=== PATIENT | female | born 1980 | race Caucasian/White ===

== ENCOUNTER 2019-07-29 19:17 | Inpatient (IN) | payer OTHER ==
[~2019-07-29] VITALS: Ht 175.3 cm; Wt 97.2 kg
--- NOTE | 2019-07-29 19:38 | ED.ADGEN ---
Past History Past Medical History: Hypertension Adult General Chief Complaint Chief Complaint ".. I ve been having this chest pain or discomfort the last 3 days.. sharifa dull... ache... heavy chest.. seems at times I can't catch my breath... 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 Pt. denies prior cardiac issues but has history of hypertension 6 years and chronic tobacco use. 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 Patient describes heaviness in center chest pain associated with episodes of dyspnea dyspnea. Nothing seems to make the discomfort better. Describes pain as more of an ache in the center. No radiation. No history of DVTs. No history of early onset of cardiac disease or blood clots with family members. They do have hypertension. Recent move approximately 6 months ago from [place]. Has had no history im munosuppression. Has had previous surgery of tubal and C-sections 2.. Has been on increased social stressors with move and new job. Review of Systems Review of Systems Constitutional: Denies fever or chills [] Eyes: Denies change in visual acuity, redness, or eye pain [] HENT: Denies nasal congestion or sore throat [] Respiratory: Complaints of episodes of shortness of breath [] Cardiovascular: No additional information not addressed in HPI [] GI: Denies abdominal pain, nausea, vomiting, bloody stools or diarrhea [] : Denies dysuria or hematuria [] Musculoskeletal: Denies back pain or joint pain [] Integument: Denies rash or skin lesions [] Neurologic: Denies headache, focal weakness or sensory changes [] Endocrine: Denies polyuria or polydipsia [] All other systems were reviewed and found to be within normal limits, except as documented in this note. Family History Family History Noncontributory Current Medications Current Medications Current Medications Medications (Trade) Dose Ordered Sig/Tom Start Time Stop Time Status Last Admin Dose Admin Aspirin (Rosales Aspirin) 325 mg 1X ONCE 07/29/19 19:45 07/29/19 20:02 DC 07/29/19 19:56 325 MG Aspirin (Children'S Aspirin) 81 mg STK-MED ONCE 07/29/19 19:53 07/29/19 19:53 DC Lactated Ringer's 1,000 ml @ 1,000 mls/hr Q1H 07/29/19 19:42 07/29/19 20:41 DC 07/29/19 19:59 1,000 MLS/HR Allergies Allergies Allergies Coded Allergies Type Severity Reaction Last Updated Verified No Known Drug Allergies 07/29/19 No Physical Exam Physical Exam Constitutional: Moderate acute distress, non-toxic appearance. [] HENT: Normocephalic, atraumatic, bilateral external ears normal, oropharynx moist, no oral exudates, nose normal. []Residue old black charcoal from face mask Eyes: PERRLA, EOMI, conjunctiva normal, no discharge. [] Neck: Normal range of motion, no tenderness, supple, no stridor. [] Cardiovascular: Tachycardia Heart rate regular rhythm, no murmur [] Note on monitor she did have frequent PVC with couplets. Lungs & Thorax: Bilateral breath sounds equal apex with scattered wheezes on auscultation [] Abdomen: Bowel sounds normal, soft, no tenderness, no masses, no pulsatile masses. Obese. Old scars. Skin: Warm, dry, no erythema, no rash. [] Back: No tenderness, no CVA tenderness. [] Extremities: No tenderness, no cyanosis, no clubbing, ROM intact, no edema. [] No cording appreciated Neurologic: Alert and oriented X 3, normal motor function, normal sensory function, no focal deficits noted. [] Psychologic: Affect anxious, judgement normal, mood normal. [] Current Patient Data Vital Signs Vital Signs Date Time Temp Pulse Resp B/P (MAP) Pulse Ox O2 Delivery O2 Flow Rate FiO2 07/29/19 21:26 106 19 141/73 (95) 96 Room Air 07/29/19 19:20 98.5 Lab Results Laboratory Tests Test 07/29/19 19:55 White Blood Count 8.1 x10^3/uL (4.0-11.0) Red Blood Count 4.50 x10^6/uL (3.50-5.40) Hemoglobin 14.8 g/dL (12.0-15.5) Hematocrit 42.6 % (36.0-47.0) Mean Corpuscular Volume 95 fL (79-100) Mean Corpuscular Hemoglobin 33 pg (25-35) Mean Corpuscular Hemoglobin Concent 35 g/dL (31-37) Red Cell Distribution Width 13.7 % (11.5-14.5) Platelet Count 313 x10^3/uL (140-400) Neutrophils (%) (Auto) 60 % (31-73) Lymphocytes (%) (Auto) 32 % (24-48) Monocytes (%) (Auto) 5 % (0-9) Eosinophils (%) (Auto) 2 % (0-3) Basophils (%) (Auto) 1 % (0-3) Neutrophils # (Auto) 4.8 x10^3uL (1.8-7.7) Lymphocytes # (Auto) 2.6 x10^3/uL (1.0-4.8) Monocytes # (Auto) 0.4 x10^3/uL (0.0-1.1) Eosinophils # (Auto) 0.2 x10^3/uL (0.0-0.7) Basophils # (Auto) 0.1 x10^3/uL (0.0-0.2) Prothrombin Time 9.7 SEC (9.4-11.4) Prothrombin Time INR 0.9 (0.9-1.1) Activated Partial Thromboplast Time 25 SEC (23-33) D-Dimer (Sandy) 0.35 mg/L (0.00-0.50) Sodium Level 143 mmol/L (136-145) Potassium Level 3.5 mmol/L (3.5-5.1) Chloride Level 106 mmol/L (98-107) Carbon Dioxide Level 22 mmol/L (21-32) Anion Gap 15 (6-14) H Blood Urea Nitrogen 5 mg/dL (7-20) L Creatinine 0.8 mg/dL (0.6-1.0) Estimated GFR (Cockcroft-Gault) 80.3 Glucose Level 118 mg/dL (70-99) H Calcium Level 8.5 mg/dL (8.5-10.1) Magnesium Level 1.9 mg/dL (1.8-2.4) Total Bilirubin 0.4 mg/dL (0.2-1.0) Direct Bilirubin 0.1 mg/dL (0.0-0.2) Aspartate Amino Transferase (AST) 40 U/L (15-37) H Alanine Aminotransferase (ALT) 59 U/L (14-59) Alkaline Phosphatase 86 U/L (46-116) Creatine Kinase 254 U/L (26-192) H Troponin I Quantitative < 0.017 ng/mL (0-0.055) TF-Acl-F-Type Natriuretic Peptide 71 pg/mL (0-124) Total Protein 7.7 g/dL (6.4-8.2) Albumin 3.6 g/dL (3.4-5.0) Lipase 171 U/L (73-393) EKG EKG My interpretation of EKG shows a sinus tachycardia at 116 bpm. Incomplete right bundle branch block.[] Radiology/Procedures Radiology/Procedures [][address] [address] IMAGING REPORT Signed PATIENT: VENECIA LYON LACCOUNT: [id number] : 1980 LOCATION: ER AGE: 38 SEX: F EXAM STATUS: REG ER ORD. PHYSICIAN: SHANNON GUZMAN MD REASON: Chest pressure, loss of appetite PROCEDURE: CHEST PA & LATERAL Exam: Chest 2 views INDICATION: Chest pressure, loss of appetite TECHNIQUE: Frontal and lateral views the chest Comparisons: None FINDINGS: The cardiomediastinal silhouette and pulmonary vessels are within normal limits. The lung and pleural spaces are clear. IMPRESSION: No acute cardiopulmonary process. Electronically signed by: Ferdinand Chahal MD (07/29/2019 9:01 PM) [facility] DICTATED AND SIGNED BY: FERDINAND CHAHAL MD DATE: 07/29/192100 CC: SHANNON GUZMAN MD; PCP,NO ~ Course & Med Decision Making Course & Med Decision Making Pertinent Labs and Imaging studies reviewed. (See chart for details) Heart Score 4-5 Discussed presentation, testing and tx. plan with Dr. Gallardo. Will admit and obtain cardiology consult. [] Final Impression Final Impression 1. Chest pain 2. Accelerated hypertension[] Dragon Disclaimer Dragon Disclaimer This electronic medical record was generated, in whole or in part, using a voice recognition dictation system. Dragon Disclaimer This chart was dictated in whole or in part using Voice Recognition software in a busy, high-work load, and often noisy Emergency Department environment. It may contain unintended and wholly unrecognized errors or omissions. SHANNON GUZMAN MD Jul 29, 2019 19:38
[2019-07-29] MEDS ORDERED: IV RINGERS SOLUTION,LACTATED 1,000 ML IV SCH (19:42)
[2019-07-29] MEDS ORDERED: ASPIRIN 325 MG TABLET PO ONE (19:45)
[2019-07-29] MEDS ORDERED: ASPIRIN 81 MG TAB.CHEW ONE (19:53)
[2019-07-29 20:19] LABS: BASO # 0.1 x10^3/uL (0.0-0.2); BASO % 1 % (0-3); EOS # 0.2 x10^3/uL (0.0-0.7); EOS % 2 % (0-3); HEMATOCRIT 42.6 % (36.0-47.0); HEMOGLOBIN 14.8 g/dL (12.0-15.5); LYMPH # 2.6 x10^3/uL (1.0-4.8); LYMPH % 32 % (24-48); MEAN CORPUSCULAR HEMOGLOBIN 33 pg (25-35); MEAN CORPUSCULAR HGB CONC 35 g/dL (31-37); MEAN CORPUSCULAR VOLUME 95 fL (79-100); MONO # 0.4 x10^3/uL (0.0-1.1); MONO % 5 % (0-9); NEUT # 4.8 x10^3uL (1.8-7.7); NEUT % 60 % (31-73); PLATELET COUNT 313 x10^3/uL (140-400); RED CELL DISTRIBUTION WIDTH 13.7 % (11.5-14.5); WHITE BLOOD COUNT 8.1 x10^3/uL (4.0-11.0)
[2019-07-29 20:36] LABS: ALBUMIN 3.6 g/dL (3.4-5.0); CALCIUM 8.5 mg/dL (8.5-10.1); CREATININE 0.8 mg/dL (0.6-1.0); DIRECT BILIRUBIN 0.1 mg/dL (0.0-0.2); GFR 80.3; MAGNESIUM 1.9 mg/dL (1.8-2.4); POTASSIUM 3.5 mmol/L (3.5-5.1); TOTAL BILIRUBIN 0.4 mg/dL (0.2-1.0); TOTAL PROTEIN 7.7 g/dL (6.4-8.2)
--- NOTE | 2019-07-29 21:04 | RAD ---
Exam: Chest 2 views INDICATION: Chest pressure, loss of appetite TECHNIQUE: Frontal and lateral views the chest Comparisons: None FINDINGS: The cardiomediastinal silhouette and pulmonary vessels are within normal limits. The lung and pleural spaces are clear. IMPRESSION: No acute cardiopulmonary process. Electronically signed by: Ferdinand Blevins MD (07/29/2019 9:01 PM) [facility]
[2019-07-29] MEDS ORDERED: ONDANSETRON PF 4 MG/2 ML VIAL. ONE (21:39)
[2019-07-29] MEDS ORDERED: ENOXAPARIN ** NOTE DOSE ** SYRINGE SQ ONE (21:45)
[2019-07-29] MEDS ORDERED: IV RINGERS SOLUTION,LACTATED 1,000 ML IV ONE (21:45)
[2019-07-29] MEDS ORDERED: NITROGLYCERIN OINT 1 GM PACKET. TP ONE (21:45)
[2019-07-29] MEDS ORDERED: ONDANSETRON PF 4 MG/2 ML VIAL. IVP ONE (21:45)
[2019-07-29] MEDS ORDERED: ONDANSETRON PF 4 MG/2 ML VIAL. IV PRN (22:00)
[2019-07-29] MEDS ORDERED: MORPHINE SULFATE 4 MG/ML DISP.SYRIN. IV PRN (22:00)
[2019-07-29] MEDS ORDERED: ACETAMINOPHEN 325 MG TABLET PO PRN (22:00)
[2019-07-29 23:53] VITALS: BP 136/83
--- NOTE | 2019-07-30 01:48 | NUR ---
The patient, VENECIA LYON, 38 y/o, F admitted by SHAKA GUZMAN MD, was given written information regarding hospital policies, unit procedures and contact persons. 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 Octaviofederica lowered and pt ambulated independently to the bed. , Lesley Soliz, at bedside on admission. VSS. Pt reports that the chest pain/pressure and SOB started Sunday. Symptoms worsened Sunday, but she just thought it was a tough day at work and went to bed. Pt reports that at this time her pain is about a 4/10, but denies the need for pain medications at this time. Explained plan of care and oriented to room. Pt is not currently taking any home medication. Valuables were checked and left in room with pt. Call light within reach
--- NOTE | 2019-07-30 04:53 | NUR ---
Cardiac consult called to [facility] answering service.
[2019-07-30 05:49] VITALS: BP 102/62
[2019-07-30] MEDS ORDERED: IPRATRPIUM/ALBUTEROL 0.5/2.5MG 3 ML NEBU. NEB SCH (08:00)
[2019-07-30 08:09] LABS: BASO # 0.1 x10^3/uL (0.0-0.2); BASO % 1 % (0-3); EOS # 0.2 x10^3/uL (0.0-0.7); EOS % 2 % (0-3); HEMATOCRIT 37.3 % (36.0-47.0); HEMOGLOBIN 12.4 g/dL (12.0-15.5); LYMPH # 3.2 x10^3/uL (1.0-4.8); LYMPH % 34 % (24-48); MEAN CORPUSCULAR HEMOGLOBIN 32 pg (25-35); MEAN CORPUSCULAR HGB CONC 33 g/dL (31-37); MEAN CORPUSCULAR VOLUME 95 fL (79-100); MONO # 0.6 x10^3/uL (0.0-1.1); MONO % 6 % (0-9); NEUT # 5.4 x10^3uL (1.8-7.7); NEUT % 57 % (31-73); PLATELET COUNT 249 x10^3/uL (140-400); RED CELL DISTRIBUTION WIDTH 13.5 % (11.5-14.5); WHITE BLOOD COUNT 9.5 x10^3/uL (4.0-11.0)
--- NOTE | 2019-07-30 08:11 | PDOC2 ---
CARDIAC CONSULT DATE OF CONSULT Date Of Consult DATE: 07/30/19 TIME: 08:07 REASON FOR CONSULT Reason for Consult Chest pain Hypertension REFERRING PHYSICIAN Referring Physician Dr. Poe SOURCE Source: Chart review, Patient HPI History of Present Illness This is a 38 yo female who presented secondary to palpitations, dizziness, and heaviness in her chest. 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 Was extremely busy at work Sunday. Was having palpitation in her central chest. Could tell that her heart was beating fast. Became lightheaded and began having heaviness in her chest. [place] slightly short of breath. No diaphoresis or nausea/vomiting. Thought this was initially due to the business at work, but symptoms did not resolved after she went home. Symptoms persisted so she came to the ED for further evaluation and treatment. EKG with ST rate 116 upon arrival. No recent illness/fevers. Recently moved here to [place]. Drink caffeine in the morning, but not usually throughout the day. Reports history of palpitations, "always had a fast heartbeat". Occasionally wakes her up in the night, but normally goes away. No previous hear workup. Also reports that she may have sleep apnea as say she stops breathing at night. PAST MEDICAL HISTORY Cardiovascular: HTN, Other (palpitations ) GI: Diverticulosis PAST SURGICAL HISTORY Past Surgical History: Tubal Ligation FAMILY HISTORY Family History: Diabetes, Hypertension SOCIAL HISTORY Smoke: 1 pack per day ALCOHOL: occassional Drugs: None Lives: with Family CURRENT MEDICATIONS Current Medications Current Medications Lactated Ringer's 1,000 ml @ 1,000 mls/hr Q1H IV Last administered on 07/29/19at 19:59; Start 07/29/19 at 19:42; Stop 07/29/19 at 20:41; Status DC Aspirin (Rosales Aspirin) 325 mg 1X ONCE PO Last administered on 07/29/19at 19:56; Start 07/29/19 at 19:45; Stop 07/29/19 at 20:02; Status DC Aspirin (Children'S Aspirin) 81 mg STK-MED ONCE .ROUTE ; Start 07/29/19 at 19:53; Stop 07/29/19 at 19:53; Status DC Ondansetron HCl (Zofran) 4 mg STK-MED ONCE .ROUTE ; Start 07/29/19 at 21:39; Stop 07/29/19 at 21:39; Status DC Lactated Ringer's 1,000 ml @ 999 mls/hr 1X ONCE IV Last administered on 07/29/19at 21:47; Start 07/29/19 at 21:45; Stop 07/29/19 at 22:45; Status DC Ondansetron HCl (Zofran) 8 mg 1X ONCE IVP Last administered on 07/29/19at 21:47; Start 07/29/19 at 21:45; Stop 07/29/19 at 21:46; Status DC Enoxaparin Sodium (Lovenox 100mg Syringe) 90 mg 1X ONCE SQ Last administered on 07/29/19at 21:51; Start 07/29/19 at 21:45; Stop 07/29/19 at 21:47; Status DC Nitroglycerin (Nitro-Bid Oint) 0.5 inch 1X ONCE TP Last administered on 07/29/19at 21:50; Start 07/29/19 at 21:45; Stop 07/29/19 at 21:47; Status DC Ondansetron HCl (Zofran) 4 mg PRN Q4HRS PRN IV NAUSEA/VOMITING; Start 07/29/19 at 22:00; Stop 07/30/19 at 21:59 Morphine Sulfate (Morphine 4mg Syringe) 4 mg PRN Q4HRS PRN IV PAIN; Start 07/29/19 at 22:00; Stop 07/30/19 at 21:59 Acetaminophen (Tylenol) 650 mg PRN Q4HRS PRN PO FEVER Last administered on 07/30/19at 01:43; Start 07/29/19 at 22:00; Stop 07/30/19 at 21:59 Albuterol/ Ipratropium (Duoneb) 3 ml RTQID NEB ; Start 07/30/19 at 08:00; Stop 07/31/19 at 07:59 Aspirin (Children'S Aspirin) 81 mg DAILY PO ; Start 07/30/19 at 09:00 Nitroglycerin (Nitro-Bid Oint) 0.5 inch TID ONCE TP ; Start 07/30/19 at 09:00; Stop 07/30/19 at 09:01 Enoxaparin Sodium (Lovenox 100mg Syringe) 90 mg BID ONCE SQ ; Start 07/30/19 at 09:00; Stop 07/30/19 at 09:01 ALLERGIES Allergies: Coded Allergies: No Known Drug Allergies (Unverified , 07/29/19) ROS Review of Systems 14 point ROS conducted with pertinent positives noted above in HPI. PHYSICAL EXAM General: Alert, Oriented X3, Cooperative, No acute distress HEENT: Atraumatic, Mucous membr. moist/pink Lungs: Clear to auscultation, Normal air movement Heart: Regular rate (SR/ST), Normal S1, Normal S2 Abdomen: Soft, No tenderness Extremities: No edema, Normal pulses Skin: No breakdown Neuro: Normal speech, Sensation intact Psych/Mental Status: Mental status NL, Mood NL MUSCULOSKELETAL: No joint tenderness VITALS Vital Signs Vital Signs Date Time Temp Pulse Resp B/P (MAP) Pulse Ox O2 Delivery O2 Flow Rate FiO2 07/30/19 05:49 98.2 87 20 102/62 (75) 98 Room Air LABS LABS Laboratory Tests Test 07/29/19 19:55 07/30/19 02:15 White Blood Count 8.1 x10^3/uL (4.0-11.0) Red Blood Count 4.50 x10^6/uL (3.50-5.40) Hemoglobin 14.8 g/dL (12.0-15.5) Hematocrit 42.6 % (36.0-47.0) Mean Corpuscular Volume 95 fL (79-100) Mean Corpuscular Hemoglobin 33 pg (25-35) Mean Corpuscular Hemoglobin Concent 35 g/dL (31-37) Red Cell Distribution Width 13.7 % (11.5-14.5) Platelet Count 313 x10^3/uL (140-400) Neutrophils (%) (Auto) 60 % (31-73) Lymphocytes (%) (Auto) 32 % (24-48) Monocytes (%) (Auto) 5 % (0-9) Eosinophils (%) (Auto) 2 % (0-3) Basophils (%) (Auto) 1 % (0-3) Neutrophils # (Auto) 4.8 x10^3uL (1.8-7.7) Lymphocytes # (Auto) 2.6 x10^3/uL (1.0-4.8) Monocytes # (Auto) 0.4 x10^3/uL (0.0-1.1) Eosinophils # (Auto) 0.2 x10^3/uL (0.0-0.7) Basophils # (Auto) 0.1 x10^3/uL (0.0-0.2) Prothrombin Time 9.7 SEC (9.4-11.4) Prothromb Time International Ratio 0.9 (0.9-1.1) Activated Partial Thromboplast Time 25 SEC (23-33) D-Dimer (Sandy) 0.35 mg/L (0.00-0.50) Sodium Level 143 mmol/L (136-145) Potassium Level 3.5 mmol/L (3.5-5.1) Chloride Level 106 mmol/L (98-107) Carbon Dioxide Level 22 mmol/L (21-32) Anion Gap 15 (6-14) Blood Urea Nitrogen 5 mg/dL (7-20) Creatinine 0.8 mg/dL (0.6-1.0) Estimated GFR (Cockcroft-Gault) 80.3 Glucose Level 118 mg/dL (70-99) Calcium Level 8.5 mg/dL (8.5-10.1) Magnesium Level 1.9 mg/dL (1.8-2.4) Total Bilirubin 0.4 mg/dL (0.2-1.0) Direct Bilirubin 0.1 mg/dL (0.0-0.2) Aspartate Amino Transf (AST/SGOT) 40 U/L (15-37) Alanine Aminotransferase (ALT/SGPT) 59 U/L (14-59) Alkaline Phosphatase 86 U/L (46-116) Creatine Kinase 254 U/L (26-192) Troponin I Quantitative < 0.017 ng/mL (0-0.055) < 0.017 ng/mL (0-0.055) CO-Zmh-E-Type Natriuretic Peptide 71 pg/mL (0-124) Total Protein 7.7 g/dL (6.4-8.2) Albumin 3.6 g/dL (3.4-5.0) Lipase 171 U/L (73-393) ASSESSMENT/PLAN Assessment/Plan 1. Chest pain, atypical. AMI ruled out. Most probably secondary to palpitations 2. Palpitations; reports h/o tachycardia. No previous cardiac workup. Tele with SR/ST 3. Hypertension; now controlled 4. Tobaccoism; discussed/encouraged cessation 5. ? FLIP Recommendations TSH, lipids Add low-dose metoprolol for rate control Outpatient event monitor Outpatient echocardiogram Needs FLIP workup. May discharge from a CV standpoint and f/u in our office with Dr. Mcduffie as scheduled. ANA VEE APRN Jul 30, 2019 08:11
[2019-07-30 08:17] LABS: CALCIUM 7.9 mg/dL (8.5-10.1); CREATININE 0.6 mg/dL (0.6-1.0); GFR 111.9; POTASSIUM 3.5 mmol/L (3.5-5.1)
[2019-07-30] MEDS ORDERED: NITROGLYCERIN OINT 1 GM PACKET. TP ONE (09:00)
[2019-07-30] MEDS ORDERED: METOPROLOL TART IMMED RELEASE 25 MG TABLET PO SCH (09:00)
[2019-07-30] MEDS ORDERED: ASPIRIN 81 MG TAB.CHEW PO SCH (09:00)
[2019-07-30] MEDS ORDERED: ENOXAPARIN ** NOTE DOSE ** SYRINGE SQ ONE (09:00)
--- NOTE | 2019-07-30 10:48 | NUR ---
Pt is alert and oriented x 4. Pt denies any chest pain at this time. Pt is pleasant. Troponins are negative. Pt chest x ray (-) as well. Consults to cardiology. LUIS Maguire assessed pt and put orders in for outpatient Echocardiogram and Stress Test. Pt to follow up with [facility] upon discharged. D/c'd breathing treatments as pt has had no c/o SOA or SOB. Will continue to assess and monitor per Dr's orders.
[2019-07-30 11:03] VITALS: BP 128/80
--- NOTE | 2019-07-30 11:25 | EKG ---
[address] [address] Test Date: 2019-07-29 Test Time: 19:26:42 Pat Name: VENECIA LYON Department: Room: 119 A Gender: F Seo Assistant: : 1980 Requested By: SHANNON GUZMAN Order Number: [id number] Reading MD: Trey Mcduffie MD Measurements Intervals [place] Rate: 116 P: -129 PA: 128 QRS: 44 QRSD: 80 T: 23 QT: 360 QTc: 507 Interpretive Statements SINUS TACHYCARDIA NON-SPECIFIC ST/T CHANGES Electronically Signed On 08-21-2019 15:22:28 NURSING HOME SOCIAL WORKER by Trey Mcduffie MD
[2019-07-30 14:26] VITALS: BP 111/67
[2019-07-30] MEDS ORDERED: ASPI-630 PO (14:48)
[2019-07-30] MEDS ORDERED: METO25TA4 PO (14:48)
--- NOTE | 2019-07-30 15:10 | SSS ---
ADMIT DATE: 07/30/2019 HISTORY OF PRESENT ILLNESS: The patient is a 38-year-old female patient who presented to the Emergency Room with complaint of palpitation, dizziness and heaviness in her chest. She works at the [employer]. She was extremely dizzy yesterday, was having palpitation in her central chest, but felt that her heart was beating fast and became lightheaded and began having heaviness in her chest, felt slightly short of breath. Denied any diaphoresis or nausea or vomiting, thought this was initially due to hard work at work, but symptoms did not resolve after she went home. Her symptoms persisted and she came to the Emergency Room for further evaluation. Her EKG showed heart rate of 116 upon arrival. She has recently moved to [place]. She said she smokes about a pack a day, drinks about 6 packs of alcohol 3 times per week. She was extensively evaluated in the Emergency Room and was admitted. She had 3 sets of cardiac enzymes that ruled out myocardial infarction. She is known to have hypertension; however, she is not on any medication for that. She was admitted and was evaluated by the Cardiology team. As the myocardial infarction was ruled out, a decision was made to start her on low-dose metoprolol as well as aspirin and to arrange for an event monitor and outpatient echocardiogram and perhaps consider sleep study as an outpatient. PAST MEDICAL HISTORY: Significant for hypertension, questionable obstructive sleep apnea and diverticulosis. PAST SURGICAL HISTORY: Significant for tubal ligation. FAMILY HISTORY: Positive for diabetes and hypertension. SOCIAL HISTORY: She is , smokes a pack a day, drinks alcohol at least 3 times a week according to her. She does not use any drugs. 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 ALLERGIES: She has no known drug allergies. MEDICATIONS: She is currently on no medication. PHYSICAL EXAMINATION: GENERAL: When I saw her, she was resting slightly propped up in bed, in no apparent respiratory distress. No pallor, jaundice, cyanosis or thyromegaly. No jugular venous distention. No limb edema. VITAL SIGNS: Her heart rate was 79, blood pressure was 111/67, temperature was 98.3, respiratory rate was 20, and oxygen saturation was 98%. HEAD, EYES, EARS, NOSE AND THROAT: Showed normocephalic, atraumatic. NECK: Supple. HEART: Showed normal first and second heart sounds. No gallop, rub or murmur. CHEST: Clear to auscultation. No crepitation or rhonchi. ABDOMEN: Distended, soft, nontender. No guarding or rigidity. No organomegaly. All hernial orifices intact. Bowel sounds normal. NEUROLOGIC: She is awake, alert, responding appropriately. All cranial nerves intact. EXTREMITIES: She moves extremities without difficulty. She ambulates without assistance or assistive devices. LABORATORY DATA: On admission her serum sodium was 143, potassium 3.5, chloride 106, bicarbonate 22, anion gap of 15, BUN 5, creatinine 0.8, estimated GFR was 80 mL per minute. Her glucose was 118, calcium was 8.5, magnesium was 1.9. Total bilirubin, AST, ALT, alkaline phosphatase were normal. She has 3 sets of cardiac enzymes showed troponin to be less than 0.017. Her total protein was 7.7, albumin was 3.6. Lipase was 171. Her white cell count was 9500, hemoglobin 12, hematocrit 37, MCV 95, and platelet count of 249,000. Her prothrombin time was 9.7, INR 0.9, aPTT was 25 and D-dimer was 0.35. ASSESSMENT AND PLAN: Chest tightness, acute myocardial infarction ruled out; palpitation; hypertension; tobaccoism; alcoholism and obstructive sleep apnea. The patient was discharged to continue on metoprolol tartrate 12.5 mg twice a day and aspirin 81 mg once a day and arrangement has been made for her to have an outpatient event monitor, outpatient echocardiogram and possible outpatient obstructive sleep apnea study. SHKAA GUZMAN MD DR: MAGGIE/tommy JOB#: [id number] / [id number]
--- NOTE | 2019-07-30 15:25 | NUR ---
Discharge Note: VENECIA LYON L1 [facility] Discharge instructions and discharge home medications reviewed with Patient and a copy given. All questions have been answered and understanding verbalized. The following instructions and handouts were given: Chest pain, follow up with [facility]ing Backer Discontinued lines and drains: D/c'd IV. Pressure dressing applied, catheter tip intact. Patient discharged to home
== END 2019-07-30 15:48 | disposition home or self-care (01) | DRG 392 ==
LOC: ER 19:17 → 1 SOUTH 21:30
PROVIDERS: ADMIT Internal Medicine; ATTEND Internal Medicine
DX: K21.9 Gastro-esophageal reflux disease without esophagitis (principal); R07.89 Other chest pain; K57.90 Diverticulosis of intestine, part unspecified, without perforation or abscess without bleeding; F17.210 Nicotine dependence, cigarettes, uncomplicated; G47.33 Obstructive sleep apnea (adult) (pediatric); I10 Essential (primary) hypertension; Z79.82 Long term (current) use of aspirin; Z82.49 Family history of ischemic heart disease and other diseases of the circulatory system; Z83.3 Family history of diabetes mellitus; F10.20 Alcohol dependence, uncomplicated
CPT/HCPCS: 36415; 71046; 80048; 80061; 80076; 82550; 83690; 83735; 83880; 84443; 84484; 85025; 85379; 85610; 85730; 93005; 96361; 96372; 96374; J1650; J2405; J7120; J7620; 99285-25

== ENCOUNTER → 2019-10-07 | Outpatient (CLI) | payer OTHER ==
[~2019-10-07] MED LIST: ASPI-630 PO; METO25TA4 PO
--- NOTE | 2019-10-07 13:07 | RAD ---
MR#: [id number] Date of Study: 10/07/2019 Ordering Physician: RAY PENN, Referring Physician: ARMINDA MENCHACA Tech: RT Yamile (R) (N) APPROVED REPORT Test Type: Exercise Stress Nurse/Tech: RT Yamile (R) (N) Test Indications: Chest Pain Cardiac History: No known cardiac Resting Heart Rate: 73 bpm Resting Blood Pressure: 143/89mmHg Pretest Chest Pain: None Stress Symptoms Dyspnea POST EXERCISE Reason for Termination: Reached target heart rate Target HR: Yes Max HR: 183 bpm 100% of Maximum Predicted HR: 154 bpm Exercise duration: 4:00 min:sec, 2 Stage Exercise capacity: 93%METs Max Blood Pressure: 158/64mmHg Blood Pressure response to exercise: Normal blood pressure response during stress. Heart Rate response to exercise: Normal Chest Pain: No. Arrhythmia: No. ST Change: No. INTERPRETATION Stress EKG Conclusion: Baseline EKG showed sinus rhythm. No ischemic changes at peak stress. No arr hythmias. Rest: Stress: Viability: Radiopharm.Tc99m [id number] Sestamibi Luyf85nFj 33mCi Duration 15min. 15min. Img Date 10/07/2019 10/07/2019 Inj-Img [id number]. 60min. Rest Admin Site:IV - Right AntecubitalAdministrator: RT Yamile (R)(N) Stress Admin Site: IV - Right AntecubitalAdministrator: RT Yamile (R)(N) STRESS DATA End Diast. Vol.97.0mlAv. Heart Rate93.0bpm End Syst. Vol.18.0mlCO Index BSA0.0L/min Myocardial Yepo151.0gEject. Nheaqinc86.0% Stress Rates Pk. Fill Rate3.02EDV/secLVtime Pk. Fill 163.99msec Pk. Empty Rate4.33ESV/secLVtime Pk. Lwamd529.37msec /3 Pk. Fill2.04EDV/sec Stress Scores Regional WT0.00Summed WT0.00 Regional WM0.00Summed WM0.00 Study quality was good. Left Ventricular size was Normal at Rest and Stress. Lung uptake was . Left Ventricular ejection fraction is 72%. The rest and stress images show normal perfusion, normal contraction and thickening. LV Perf. Quant 17 Seg. SSS0.00 17 Seg. SRS0.00 17 Seg. SDS0.00 Stress Defect Extent (% LAD)0.00Rest Defect Extent (% LAD)0.00Rev. Defect Extent (% LAD)0.00 Stress Defect Extent (% LCX) 0.00Rest Defect Extent (% LCX)0.00Rev. Defect Extent (% LCX)0.00 Stress Defect Extent (% RCA)0.00Rest Defect Extent (% RCA)0.00Rev. Defect Extent (% RCA)0.00 Stress Defect Extent (% ANDREW)0.00Rest Defect Extent (% ANDREW)0.00Rev. Defect Extent (% ANDREW)0.00 Conclusion 1. Treadmill exercise cardioisotope stress test did not show any evidence of ischemia or infarct. 2. Normal left ventricular systolic function with ejection fraction calculated at 72%. 3. Low risk for cardiac events. Signed by : Jose De Jesus Rubio, Electronically Approved : 10/07/2019 13:07:12
== END | disposition home or self-care (01) ==
LOC: NM 07:22
PROVIDERS: ATTEND Internal Medicine Cardiovascular Disease
DX: R06.09 Other forms of dyspnea (principal); I10 Essential (primary) hypertension; F17.200 Nicotine dependence, unspecified, uncomplicated; Z79.01 Long term (current) use of anticoagulants
CPT/HCPCS: 78452; 93017; A9500; 96376

== ENCOUNTER → 2019-12-29 | Outpatient (CLI) | payer OTHER | END | disposition home or self-care (01) | LOC: LAB 07:40 | PROVIDERS: ATTEND Internal Medicine Cardiovascular Disease | DX: R51 Headache (principal); R68.83 Chills (without fever); Z20.828 Contact with and (suspected) exposure to other viral communicable diseases | CPT/HCPCS: 87635 ==

== ENCOUNTER → 2020-03-17 | Outpatient (CLI) | payer OTHER ==
[2020-03-17 12:39] LABS: BASO % 0 % (0-3); EOS # 0.2 x10^3/uL (0.0-0.7); EOS % 2 % (0-3); HEMATOCRIT 41.2 % (36.0-47.0); HEMOGLOBIN 13.8 g/dL (12.0-15.5); LYMPH # 1.5 x10^3/uL (1.0-4.8); LYMPH % 14 % (24-48); MEAN CORPUSCULAR HEMOGLOBIN 32 pg (25-35); MEAN CORPUSCULAR HGB CONC 33 g/dL (31-37); MEAN CORPUSCULAR VOLUME 95 fL (79-100); MONO # 0.4 x10^3/uL (0.0-1.1); MONO % 4 % (0-9); NEUT # 8.8 x10^3uL (1.8-7.7); NEUT % 80 % (31-73); PLATELET COUNT 357 x10^3/uL (140-400); RED BLOOD COUNT 4.33 x10^6/uL (3.50-5.40); RED CELL DISTRIBUTION WIDTH 14.6 % (11.5-14.5)
[2020-03-17 12:51] LABS: ALBUMIN 3.4 g/dL (3.4-5.0); ALBUMIN/GLOBULIN RATIO 0.9 (1.0-1.7); CALCIUM 8.1 mg/dL (8.5-10.1); CREATININE 0.8 mg/dL (0.6-1.0); GFR 79.9; POTASSIUM 3.8 mmol/L (3.5-5.1); TOTAL PROTEIN 7.2 g/dL (6.4-8.2)
[2020-03-17 12:53] LABS: BACTERIA,URINE MANY /HPF (0-FEW); BILIRUBIN,URINE NEG (NEG); CLARITY,URINE CLEAR; COLOR,URINE YELLOW; GLUCOSE,URINE NEG (NEG); NITRITE,URINE POS (NEG); RBC,URINE OCC /HPF (0-2); SQUAMOUS EPITHELIAL CELL,UR MANY /LPF; UROBILINOGEN,URINE 0.2 mg/dL (0.2 mg/dL); WBC,URINE OCC /HPF (0-4)
[2020-03-17 19:49] LABS: FREE T4 0.92 ng/dL (0.76-1.46)
[2020-03-17 19:50] LABS: THYROID STIM HORMONE (TSH) 2.118 uIU/mL (0.358-3.740)
== END ==
LOC: LAB 10:58
PROVIDERS: ATTEND Physician Assistant
DX: Z76.89 Persons encountering health services in other specified circumstances (principal); R87.619 Unspecified abnormal cytological findings in specimens from cervix uteri; R06.81 Apnea, not elsewhere classified; L75.0 Bromhidrosis; G47.19 Other hypersomnia; Z86.010 Personal history of colon polyps; G47.00 Insomnia, unspecified
CPT/HCPCS: 36415; 80053; 81001; 84439; 84443; 85025; 87086

== ENCOUNTER → 2020-04-03 | Outpatient (CLI) | payer OTHER | END | disposition home or self-care (01) | LOC: LAB 02:06 | PROVIDERS: ATTEND Internal Medicine Cardiovascular Disease | DX: Z20.828 Contact with and (suspected) exposure to other viral communicable diseases (principal) | CPT/HCPCS: C9803; U0003; 36415 ==

== ENCOUNTER → 2020-04-08 | Outpatient (CLI) | payer OTHER | END | disposition home or self-care (01) | LOC: LAB 04:10 | PROVIDERS: ATTEND Internal Medicine Cardiovascular Disease | DX: R05 Cough (principal); R06.03 Acute respiratory distress; Z20.828 Contact with and (suspected) exposure to other viral communicable diseases | CPT/HCPCS: C9803; U0003; 36415 ==

== ENCOUNTER → 2020-04-15 | Outpatient (CLI) | payer OTHER | END | disposition home or self-care (01) | LOC: LAB 05:58 | PROVIDERS: ATTEND Internal Medicine Cardiovascular Disease | DX: R05 Cough (principal); R06.03 Acute respiratory distress; Z20.828 Contact with and (suspected) exposure to other viral communicable diseases | CPT/HCPCS: C9803; U0003; 36415 ==

== ENCOUNTER → 2020-04-23 | Outpatient (CLI) | payer OTHER | END | disposition home or self-care (01) | LOC: LAB 11:00 | PROVIDERS: ATTEND Internal Medicine Cardiovascular Disease | DX: R05 Cough (principal); R06.03 Acute respiratory distress; Z20.828 Contact with and (suspected) exposure to other viral communicable diseases | CPT/HCPCS: U0003-CS ==

== ENCOUNTER → 2020-05-19 | Outpatient (CLI) | payer OTHER ==
--- NOTE | 2020-05-19 15:33 | RAD ---
Examination: Ultrasound pelvis HISTORY: History of excessive menstruation COMPARISON: None available FINDINGS: The uterus measures 8.5 x 5.2 x 4.7 cm. Endometrium measures 1.4 cm in thickness. The right ovary could not be visualized. The left ovary measures 2.7 x 1.8 1.6 cm. A 1.7 cm follicle identified in the left ovary. Tortuous increased vascular flow identified in the bilateral adnexa. IMPRESSION: 1. The endometrium measures 1.4 cm in thickness could be endometrial thickening (given patient's LMP was 05/11/2020). 2. Tortuous increased vascular flow identified in the pelvis could be pelvic congestion. Electronically signed by: Loin Bailey MD (05/19/2020 3:30 PM) [id number]
== END | disposition home or self-care (01) ==
LOC: US 13:47
PROVIDERS: ATTEND Obstetrics & Gynecology
DX: N92.0 Excessive and frequent menstruation with regular cycle (principal); R93.89 Abnormal findings on diagnostic imaging of other specified body structures
CPT/HCPCS: 76830; 76856

== ENCOUNTER → 2020-07-30 | Outpatient (CLI) | payer OTHER | LOC: LAB 12:15 | PROVIDERS: ATTEND Internal Medicine Cardiovascular Disease | DX: Z20.828 Contact with and (suspected) exposure to other viral communicable diseases (principal) | CPT/HCPCS: U0003 ==

== ENCOUNTER → 2020-08-04 | Outpatient (CLI) | payer OTHER ==
[2020-08-04 21:09] LABS: BACTERIA,URINE FEW /HPF (0-FEW); BILIRUBIN,URINE NEG (NEG); CLARITY,URINE CLEAR; COLOR,URINE YELLOW; GLUCOSE,URINE NEG (NEG); NITRITE,URINE NEG (NEG); RBC,URINE RARE /HPF (0-2); SQUAMOUS EPITHELIAL CELL,UR OCC /LPF; UROBILINOGEN,URINE 0.2 mg/dL (0.2 mg/dL); WBC,URINE OCC /HPF (0-4)
== END ==
LOC: LAB 19:18
PROVIDERS: ATTEND Physician Assistant
DX: R30.0 Dysuria (principal)
CPT/HCPCS: 81001

== ENCOUNTER → 2020-08-15 | Outpatient (CLI) | payer OTHER | LOC: LAB 18:11 | PROVIDERS: ATTEND Internal Medicine Cardiovascular Disease | DX: Z20.828 Contact with and (suspected) exposure to other viral communicable diseases (principal) | CPT/HCPCS: U0003 ==

== ENCOUNTER → 2020-08-23 | Outpatient (CLI) | payer OTHER | LOC: LAB 00:11 | PROVIDERS: ATTEND Internal Medicine Cardiovascular Disease | DX: Z20.828 Contact with and (suspected) exposure to other viral communicable diseases (principal) | CPT/HCPCS: U0003 ==

== ENCOUNTER → 2021-02-23 | Outpatient (CLI) | payer OTHER ==
[2021-02-23 13:37] LABS: BASO # 0.1 x10^3/uL (0.0-0.2); BASO % 1 % (0-3); EOS # 0.4 x10^3/uL (0.0-0.7); EOS % 4 % (0-3); HEMATOCRIT 38.2 % (36.0-47.0); HEMOGLOBIN 13.2 g/dL (12.0-15.5); LYMPH # 2.5 x10^3/uL (1.0-4.8); LYMPH % 25 % (24-48); MEAN CORPUSCULAR HEMOGLOBIN 33 pg (25-35); MEAN CORPUSCULAR HGB CONC 35 g/dL (31-37); MEAN CORPUSCULAR VOLUME 96 fL (79-100); MONO # 0.5 x10^3/uL (0.0-1.1); MONO % 5 % (0-9); NEUT # 6.4 x10^3uL (1.8-7.7); NEUT % 65 % (31-73); PLATELET COUNT 340 x10^3/uL (140-400); RED CELL DISTRIBUTION WIDTH 13.5 % (11.5-14.5); WHITE BLOOD COUNT 9.9 x10^3/uL (4.0-11.0)
[2021-02-23 13:48] LABS: ALBUMIN 3.2 g/dL (3.4-5.0); ALBUMIN/GLOBULIN RATIO 0.9 (1.0-1.7); CALCIUM 8.3 mg/dL (8.5-10.1); CREATININE 0.6 mg/dL (0.6-1.0); GFR 110.7; TOTAL BILIRUBIN 0.7 mg/dL (0.2-1.0); TOTAL PROTEIN 6.9 g/dL (6.4-8.2)
[2021-02-23 14:41] LABS: SEDIMENTATION RATE 14 (0-25)
[2021-02-24 14:43] LABS: FREE T4 0.8 ng/dL (0.76-1.46); THYROID STIM HORMONE (TSH) 1.559 uIU/mL (0.358-3.740)
[2021-02-25 20:09] LABS: ANA INTERP Negative (.)
[2021-02-25 23:09] LABS: CYCLIC CITRULLIN PEP AB 3 units (0-19)
== END ==
LOC: LAB 11:45
PROVIDERS: ATTEND Physician Assistant
DX: K59.1 Functional diarrhea (principal); G56.91 Unspecified mononeuropathy of right upper limb; G56.92 Unspecified mononeuropathy of left upper limb; M25.541 Pain in joints of right hand; M25.542 Pain in joints of left hand
CPT/HCPCS: 36415; 80053; 84439; 84443; 85025; 85651; 86038; 86200

== ENCOUNTER → 2021-04-08 | Outpatient (CLI) | payer OTHER | LOC: LAB 05:57 | PROVIDERS: ATTEND Internal Medicine Cardiovascular Disease | DX: Z20.822 Contact with and (suspected) exposure to COVID-19 (principal) | CPT/HCPCS: U0003 ==

== ENCOUNTER → 2021-04-15 | Outpatient (CLI) | payer OTHER | LOC: LAB 10:10 | PROVIDERS: ATTEND Internal Medicine Cardiovascular Disease | DX: Z20.822 Contact with and (suspected) exposure to COVID-19 (principal) | CPT/HCPCS: U0003 ==

== ENCOUNTER → 2021-04-22 | Outpatient (CLI) | payer OTHER | LOC: LAB 06:54 | PROVIDERS: ATTEND Internal Medicine Cardiovascular Disease | DX: Z20.822 Contact with and (suspected) exposure to COVID-19 (principal) | CPT/HCPCS: U0003 ==

== ENCOUNTER → 2021-04-29 | Outpatient (CLI) | payer OTHER | LOC: LAB 06:38 | PROVIDERS: ATTEND Internal Medicine Cardiovascular Disease | DX: Z20.822 Contact with and (suspected) exposure to COVID-19 (principal) | CPT/HCPCS: U0003 ==

== ENCOUNTER → 2021-05-06 | Outpatient (CLI) | payer OTHER | LOC: LAB 07:10 | PROVIDERS: ATTEND Internal Medicine Cardiovascular Disease | DX: Z20.822 Contact with and (suspected) exposure to COVID-19 (principal) | CPT/HCPCS: U0003 ==

== ENCOUNTER → 2021-05-13 | Outpatient (CLI) | payer OTHER | LOC: LAB 06:42 | PROVIDERS: ATTEND Internal Medicine Cardiovascular Disease | DX: Z20.822 Contact with and (suspected) exposure to COVID-19 (principal) | CPT/HCPCS: U0003 ==

== ENCOUNTER → 2021-05-20 | Outpatient (CLI) | payer OTHER | LOC: LAB 07:00 | PROVIDERS: ATTEND Internal Medicine Cardiovascular Disease | DX: Z20.822 Contact with and (suspected) exposure to COVID-19 (principal) | CPT/HCPCS: U0003 ==

== ENCOUNTER → 2021-06-06 | Outpatient (CLI) | payer OTHER | LOC: LAB 08:55 | PROVIDERS: ATTEND Internal Medicine Cardiovascular Disease | DX: Z20.822 Contact with and (suspected) exposure to COVID-19 (principal) | CPT/HCPCS: C9803; U0003 ==

== ENCOUNTER → 2021-06-18 | Outpatient (CLI) | payer OTHER | LOC: LAB 04:45 | PROVIDERS: ATTEND Internal Medicine Cardiovascular Disease | DX: Z20.822 Contact with and (suspected) exposure to COVID-19 (principal) | CPT/HCPCS: C9803; U0003 ==

== ENCOUNTER → 2021-06-26 | Outpatient (CLI) | payer OTHER | LOC: LAB 04:30 | PROVIDERS: ATTEND Internal Medicine Cardiovascular Disease | DX: Z20.822 Contact with and (suspected) exposure to COVID-19 (principal) | CPT/HCPCS: C9803; U0003 ==

== ENCOUNTER → 2021-06-29 | Outpatient (CLI) | payer OTHER | LOC: LAB 14:59 | PROVIDERS: ATTEND Internal Medicine Cardiovascular Disease | DX: Z20.822 Contact with and (suspected) exposure to COVID-19 (principal) | CPT/HCPCS: U0003; U0005 ==

== ENCOUNTER → 2021-07-04 | Outpatient (CLI) | payer OTHER | LOC: LAB 04:15 | PROVIDERS: ATTEND Internal Medicine Cardiovascular Disease | DX: Z20.822 Contact with and (suspected) exposure to COVID-19 (principal) | CPT/HCPCS: C9803; U0003 ==

== ENCOUNTER → 2021-07-16 | Outpatient (CLI) | payer OTHER | LOC: LAB 15:44 | PROVIDERS: ATTEND Internal Medicine Cardiovascular Disease | DX: Z20.822 Contact with and (suspected) exposure to COVID-19 (principal) | CPT/HCPCS: C9803; U0003 ==

== ENCOUNTER → 2021-07-22 | Outpatient (CLI) | payer OTHER | LOC: LAB 09:43 | PROVIDERS: ATTEND Internal Medicine Cardiovascular Disease | DX: Z20.822 Contact with and (suspected) exposure to COVID-19 (principal) | CPT/HCPCS: U0003 ==

== ENCOUNTER → 2021-07-30 | Outpatient (CLI) | payer OTHER | LOC: LAB 05:55 | PROVIDERS: ATTEND Internal Medicine Cardiovascular Disease | DX: Z20.822 Contact with and (suspected) exposure to COVID-19 (principal) | CPT/HCPCS: C9803; U0003 ==

== ENCOUNTER → 2021-08-05 | Outpatient (CLI) | payer OTHER | LOC: LAB 09:02 | PROVIDERS: ATTEND Internal Medicine Cardiovascular Disease | DX: Z20.822 Contact with and (suspected) exposure to COVID-19 (principal) | CPT/HCPCS: U0003 ==

== ENCOUNTER → 2021-08-14 | Outpatient (CLI) | payer OTHER | LOC: LAB 05:30 | PROVIDERS: ATTEND Internal Medicine Cardiovascular Disease | DX: Z20.822 Contact with and (suspected) exposure to COVID-19 (principal) | CPT/HCPCS: C9803; U0003 ==

== ENCOUNTER → 2021-08-20 | Outpatient (CLI) | payer OTHER | LOC: LAB 05:45 | PROVIDERS: ATTEND Internal Medicine Cardiovascular Disease | DX: Z20.822 Contact with and (suspected) exposure to COVID-19 (principal) | CPT/HCPCS: C9803; U0003 ==

== ENCOUNTER → 2021-08-26 | Outpatient (CLI) | payer OTHER | LOC: LAB 13:44 | PROVIDERS: ATTEND Internal Medicine Cardiovascular Disease | DX: Z20.822 Contact with and (suspected) exposure to COVID-19 (principal) | CPT/HCPCS: U0003 ==

== ENCOUNTER → 2021-09-02 | Outpatient (CLI) | payer OTHER | LOC: LAB 07:23 | PROVIDERS: ATTEND Internal Medicine Cardiovascular Disease | DX: Z20.822 Contact with and (suspected) exposure to COVID-19 (principal) | CPT/HCPCS: U0003 ==

== ENCOUNTER → 2021-09-11 | Outpatient (CLI) | payer OTHER | LOC: LAB 05:30 | PROVIDERS: ATTEND Internal Medicine Cardiovascular Disease | DX: Z20.822 Contact with and (suspected) exposure to COVID-19 (principal) | CPT/HCPCS: C9803; U0003 ==

== ENCOUNTER → 2021-09-18 | Outpatient (CLI) | payer OTHER | LOC: LAB 06:15 | PROVIDERS: ATTEND Internal Medicine Cardiovascular Disease | DX: Z20.822 Contact with and (suspected) exposure to COVID-19 (principal) | CPT/HCPCS: C9803; U0003 ==

== ENCOUNTER → 2021-09-23 | Outpatient (CLI) | payer OTHER | LOC: LAB 07:00 | PROVIDERS: ATTEND Internal Medicine Cardiovascular Disease | DX: Z20.822 Contact with and (suspected) exposure to COVID-19 (principal) | CPT/HCPCS: U0003 ==

== ENCOUNTER → 2021-09-30 | Outpatient (CLI) | payer OTHER | LOC: LAB 07:00 | PROVIDERS: ATTEND Internal Medicine Cardiovascular Disease | DX: Z20.822 Contact with and (suspected) exposure to COVID-19 (principal) | CPT/HCPCS: U0003 ==

== ENCOUNTER → 2021-10-07 | Outpatient (CLI) | payer OTHER | LOC: LAB 07:00 | PROVIDERS: ATTEND Internal Medicine Cardiovascular Disease | DX: Z20.822 Contact with and (suspected) exposure to COVID-19 (principal) | CPT/HCPCS: U0003 ==

== ENCOUNTER → 2021-10-14 | Outpatient (CLI) | payer OTHER | LOC: LAB 07:00 | PROVIDERS: ATTEND Internal Medicine Cardiovascular Disease | DX: U07.1 COVID-19 (principal) | CPT/HCPCS: U0003 ==

== ENCOUNTER → 2022-02-02 | Outpatient (CLI) | payer OTHER ==
[2022-02-02 13:59] LABS: BASO % 0 % (0-3); EOS # 0.1 x10^3/uL (0.0-0.7); EOS % 1 % (0-3); HEMATOCRIT 41.1 % (36.0-47.0); HEMOGLOBIN 14.1 g/dL (12.0-15.5); LYMPH # 2.7 x10^3/uL (1.0-4.8); LYMPH % 25 % (24-48); MEAN CORPUSCULAR HEMOGLOBIN 33 pg (25-35); MEAN CORPUSCULAR HGB CONC 34 g/dL (31-37); MEAN CORPUSCULAR VOLUME 95 fL (79-100); MONO # 0.7 x10^3/uL (0.0-1.1); MONO % 6 % (0-9); NEUT # 7.4 x10^3uL (1.8-7.7); NEUT % 68 % (31-73); PLATELET COUNT 373 x10^3/uL (140-400); RED BLOOD COUNT 4.33 x10^6/uL (3.50-5.40); RED CELL DISTRIBUTION WIDTH 13.8 % (11.5-14.5)
[2022-02-02 16:04] LABS: ALBUMIN 3.8 g/dL (3.4-5.0); ALBUMIN/GLOBULIN RATIO 1.2 (1.0-1.7); CALCIUM 8.9 mg/dL (8.5-10.1); CREATININE 0.6 mg/dL (0.6-1.0); GFR 110.2; POTASSIUM 3.8 mmol/L (3.5-5.1); TOTAL BILIRUBIN 0.9 mg/dL (0.2-1.0); TOTAL PROTEIN 7.1 g/dL (6.4-8.2)
[2022-02-03 17:35] LABS: CHOLESTEROL/HDL RATIO 3.5; FREE T4 1.13 ng/dL (0.76-1.46); THYROID STIM HORMONE (TSH) 2.99 uIU/mL (0.358-3.740)
== END ==
LOC: LAB 12:54
PROVIDERS: ATTEND Physician Assistant
DX: Z00.00 Encounter for general adult medical examination without abnormal findings (principal); I10 Essential (primary) hypertension; G47.33 Obstructive sleep apnea (adult) (pediatric)
CPT/HCPCS: 36415; 80053; 80061; 84439; 84443; 85025

== ENCOUNTER → 2022-02-07 | Outpatient (CLI) | payer OTHER ==
--- NOTE | 2022-02-07 16:49 | RAD ---
XR CHEST 2V History: Reason: COUGH / Spl. Instructions: / History: Comparison: July 29, 2019 Findings: Mild multifocal ill-defined opacities bilaterally. No pleural effusion. No pneumothorax. Normal heart size. Impression: 1. Mild multifocal ill-defined opacities bilaterally, may represent pneumonia including viral pneumo jessica. Recommend follow-up to ensure resolution. Electronically signed by: Markus Rodrigez DO (02/07/2022 4:47 PM) [id number]
== END ==
LOC: RAD 11:59
PROVIDERS: ATTEND Physician Assistant
DX: R05.9 Cough, unspecified (principal)
CPT/HCPCS: 71046